=== PATIENT | female | born 1990 | race Two or more races ===

== ENCOUNTER 2017-03-16 23:57 | Emergency (ER) | payer OTHER ==
[~2017-03-16] VITALS: Ht 167.6 cm; Wt 78.5 kg
[2017-03-17 02:12] VITALS: BP 111/68
[2017-03-17] MEDS ORDERED: PROMETHAZINE 25MG TABLET PO ONE (02:30)
== END 2017-03-17 03:06 | disposition home or self-care (01) ==
LOC: ED 23:59
DX: O20.0 Threatened abortion (principal); O34.81 Maternal care for other abnormalities of pelvic organs, first trimester; N83.202 Unspecified ovarian cyst, left side; Z3A.01 Less than 8 weeks gestation of pregnancy
CPT/HCPCS: 36415; 76801; 81003; 84702; 99285